=== PATIENT | male | born 1970 | race Caucasian/White ===

== ENCOUNTER 2018-09-05 13:02 | Emergency (ER) | payer OTHER ==
[~2018-09-05] VITALS: Ht 180.3 cm; Wt 82.1 kg
[2018-09-05 13:06] VITALS: Ht 180.3 cm; Wt 82.1 kg
[2018-09-05] MEDS ORDERED: SOD CHLORIDE 0.9% 1,000 ML IV STA (13:50)
[2018-09-05] MEDS ORDERED: KETOROLAC 15 MG INJ IV STA (13:50)
[2018-09-05] MEDS ORDERED: ONDANSETRON 4 MG INJ IV STA (13:50)
[2018-09-05] MEDS ORDERED: DICYCLOMINE 20 MG INJ IM ONE (14:00)
--- NOTE | 2018-09-05 14:12 | ERD ---
ER Documentation Chief Complaint Chief Complaint abd pain with vomiting/diarrhea and fever x 2 days HPI 48-year-old male presents with nausea and nonbilious vomiting every 2 hours for x2 days. He reports waking up yesterday morning feeling very weak dizzy with nonspecific 6/10 pain aching abdominal cramps. In addition he reports cramps in his legs and all around muscular skeletal aches throughout his body. He denies any recent travel or eating any unusual or new foods. He denies being around the new sick contacts. He denies any headaches sore throat rhinorrhea congestion shortness of breath or chest pain. ROS All systems reviewed and are negative except as per history of present illness. Medications Home Meds Active Scripts Ondansetron (Ondansetron Odt) 4 Mg Tab.rapdis, 4 MG PO Q6H PRN for NAUSEA AND/OR VOMITING, #20 TAB Prov:MOISES SWEENEY MD 09/05/18 Dicyclomine HCl (Dicyclomine HCl) 10 Mg Capsule, 10 MG PO TID PRN for ABDOMINAL CRAMPING, #20 CAP Prov:MOISES SWEENEY MD 09/05/18 Allergies Allergies: Coded Allergies: No Known Allergy (Unverified , 09/05/18) PMhx/Soc Medical and Surgical Hx: pt denies Medical Hx, pt denies Surgical Hx FmHx Family History: diabetes Physical Exam Vitals Vital Signs Date Temp Pulse Resp B/P (MAP) Pulse Ox O2 O2 Flow FiO2 Time Delivery Rate 09/05/18 98.6 88 16 119/71 99 Room Air 15:55 (87) 09/05/18 99.2 112 18 115/77 99 13:06 (90) Physical Exam Const: Appears weak and tired Head: Atraumatic Eyes: Normal Conjunctiva ENT: Normal External Ears, Nose and Mouth. Neck: Full range of motion. No meningismus. Resp: Clear to auscultation bilaterally Cardio: Regular rate and rhythm, no murmurs Abd: Soft, non distended, nonspecific abd pain. Normal bowel sounds, Skin: No petechiae or rashes Back: No midline or flank tenderness Ext: No cyanosis, or edema Neur: Awake and alert Psych: Normal Mood and Affect Result Diagram: 09/05/18 1400 09/05/18 1400 Results 24 hrs Laboratory Tests Test 09/05/18 14:00 White Blood Count 9.8 10^3/ul Red Blood Count 5.19 10^6/ul Hemoglobin 15.9 g/dl Hematocrit 46.8 % Mean Corpuscular Volume 90.2 fl Mean Corpuscular Hemoglobin 30.6 pg Mean Corpuscular Hemoglobin Concent 34.0 g/dl Red Cell Distribution Width 13.1 % Platelet Count 274 10^3/UL Mean Platelet Volume 10.1 fl Immature Granulocytes % 0.300 % Neutrophils % 80.2 % Lymphocytes % 10.3 % Monocytes % 8.9 % Eosinophils % 0.0 % Basophils % 0.3 % Nucleated Red Blood Cells % 0.0 /100WBC Immature Granulocytes # 0.030 10^3/ul Neutrophils # 7.8 10^3/ul Lymphocytes # 1.0 10^3/ul Monocytes # 0.9 10^3/ul Eosinophils # 0.0 10^3/ul Basophils # 0.0 10^3/ul Nucleated Red Blood Cells # 0.0 10^3/ul Sodium Level 138 mmol/L Potassium Level 3.8 mmol/L Chloride Level 101 mmol/L Carbon Dioxide Level 24 mmol/L Anion Gap 13 Blood Urea Nitrogen 26 mg/dl Creatinine 1.28 mg/dl Est Glomerular Filtrat Rate mL/min > 60 mL/min Glucose Level 119 mg/dl Calcium Level 8.2 mg/dl Current Medications Medications Dose Sig/Cristino Start Time Status Last (Trade) Ordered Route PRN Stop Time Admin Dose Reason Admin Sodium 1,000 ml @ Q1H STAT 09/05/18 DC 09/05/18 Chloride 1,000 mls/hr IV 13:50 14:31 09/05/18 14:49 Ondansetron 4 mg ONCE STAT 09/05/18 DC 09/05/18 HCl (Zofran IV 13:50 14:31 Inj) 09/05/18 13:52 Ketorolac 15 mg ONCE STAT 09/05/18 DC 09/05/18 Tromethamine IV 13:50 14:31 (Toradol) 09/05/18 13:52 Dicyclomine 10 mg ONCE ONCE 09/05/18 DC 09/05/18 HCl IM 14:00 15:09 (Bentyl) 09/05/18 14:01 Procedures/MDM ED COURSE: The patient was stable throughout ED course. I kept the patient informed of laboratory and diagnostic imaging results throughout the ED course. Laboratory: CBC showed slightly elevated neutrophils but within normal limits Slightly elevated creatinine and BUN slightly decreased calcium MEDICATIONS GIVEN: Zofran 4 mg IV Toradol 50 mg IV Bentyl 10 mg IM Patient tolerated medication well with no adverse reactions. Patient reported i mprovement in pain. MEDICAL DECISION MAKING: Patient is a 48-year-old male presenting with nausea and vomiting for 2 days. He reports he has been vomiting every 2 hours since yesterday with nonspecific muscle aches and cramps throughout his body. Vital signs were reviewed. Patient is afebrile. Patient was not hypoxic. Patient was hemodynamically stable. PRESCRIPTION: DISCHARGE: At this time, patient is stable for discharge and outpatient management. I have instructed the patient to follow-up with his primary care physician in 1-2 days. I have discussed with the patient the possibility of needing to see a specialist for further workup and imaging studies if symptoms persist. I have instructed the patient to promptly return to the ER for any new or worsening symptoms incl uding increased pain, fever, weakness or LOC. The patient and/or family expressed understanding of and agreement with this plan. All questions were answered. Home care instructions were provided. Disclaimer: Inadvertent spelling and grammatical errors are likely due to EHR/dictation software use and do not reflect on the overall quality of patient care. Also, please note that the electronic time recorded on this note does not necessarily reflect the actual time of the patient encounter. Departure Diagnosis: Primary Impression: Nausea vomiting and diarrhea Additional Impressions: Acute renal insufficiency Dehydration, mild Condition: Stable SHAKIR MADDOX PA-C September 05, 2018 14:02
[2018-09-05 15:55] VITALS: BP 119/71; PULSE 88; RESP 16
[2018-09-05] MEDS ORDERED: ONDA4TAB14 PO (16:21)
[2018-09-05] MEDS ORDERED: DICY10CA40 PO (16:21)
== END 2018-09-05 18:05 | disposition home or self-care (01) ==
LOC: E/R 13:02
DX: N28.9 Disorder of kidney and ureter, unspecified (principal); E86.0 Dehydration
CPT/HCPCS: 36415; 80048; 85025; 96372; 96374; 96375; J0500; J1885; J2405; J7030; Z7502